=== PATIENT | female | born 1940 | race Caucasian/White ===

== ENCOUNTER → 2016-08-27 | Outpatient (CLI) | payer BC, MEDICARE | LOC: NM 08:54 | DX: C50.312 Malignant neoplasm of lower-inner quadrant of left female breast (principal); R93.8 Abnormal findings on diagnostic imaging of other specified body structures | CPT/HCPCS: 78306; A9503 ==

== ENCOUNTER → 2016-08-29 | Outpatient (CLI) | payer BC, MEDICARE | LOC: CT 08-20 10:00 → NM 08-21 08:00 → CT 08-21 08:00 | DX: C50.312 Malignant neoplasm of lower-inner quadrant of left female breast (principal); R91.8 Other nonspecific abnormal finding of lung field; R19.09 Other intra-abdominal and pelvic swelling, mass and lump | CPT/HCPCS: 71260; J7050; Q9962 ==